=== PATIENT | female | born 1980 | race Asian ===

== ENCOUNTER → 2018-04-10 14:29 | Outpatient (CLI) | payer BC, SELFPAY ==
--- NOTE | 2018-04-10 14:30 | DI.US.S_ITS ---
PROCEDURE: US OB >= 14 WEEKS FETUS INDICATIONS: 20 week anatomic survey OUTSIDE/PRIOR DATING DATA: Last menstrual period (LMP): 11/21/17. LMP-based estimated date of delivery (SHERYL): 08/28/18. First dating scan (date and location): 01/26/18. Estimated date of delivery (SHERYL) from first dating scan: 09/01/18. TECHNIQUE: Real-time scanning was performed of the fetus, with image documentation and biometric measurements. COMPARISON: [facility], , OB >= 14 WEEKS FETUS, 04/01/2018, 16:11. FINDINGS: General: A single living intrauterine gestation is present. Presentation: Vertex Placenta: Placental position is posterior, without previa. Amniotic fluid index: 14.7 cm, normal range is 5-24 cm. heart rate: 144 beats per minute. Maternal cervical canal: 5.2 cm long. Normal lower limit is 2.5 cm. biometrics: Biparietal diameter: 4.7 cm, 20 weeks 1 day Head circumference: 17.2 cm, 19 weeks 5 days Abdominal circumference: 14.8 cm, 20 weeks Femur length: 2.9 cm, 18 weeks 6 days Estimated gestational age from initial scan: 19 weeks 3 days Composite gestational age from present scan: 19 weeks 5 days Estimated weight and percentile: 301 g corresponding to the 55th percentile Measurement variability for biometric dating: +/- 7 days from 14 weeks to 15 weeks 6 days gestation, +/- 10 days from 16 weeks to 21 weeks 6 days gestation, +/- 2 weeks from 22 weeks to 27 weeks 6 days gestation, +/- 3 weeks for 28 weeks gestation or later. weight reference: 4500 g or EFW >90/95% is considered macrosomia or large for gestational age. EFW <10% is small for gestational age. EFW 5% or less is considered intra-uterine growth restriction. Anatomic survey: Neuro: Ventricles are non-dilated at less than 10 mm. Cisterna magna is normal at 3-11 mm. Cerebellum is normal in size and morphology. Nuchal skin fold: Normal at less than 6 mm between 14-21 weeks gestational age. Face: Nose and lips, facial profile are normal. Spine: No evidence for spina bifida. Heart: 4-chambered heart is present, with normal ventricular outflow tracts. Diaphragm: Diaphragm is intact. Stomach: Left-sided stomach is present. Kidneys: No hydronephrosis. Normal is less than 5 mm in 2nd trimester, less than 7 mm in 3rd trimester. Cord: 3-vessel cord has orthotopic insertion. Bladder: Normal in size. Extremities: All 4 extremities identified. IMPRESSION: 1. Single living intrauterine demonstrating appropriate interval growth with estimated weight at the 55th percentile. 2. No abnormalities identified on anatomic survey. Dictated by: Sudhir Wen M.D. on 04/10/2018 at 17:27 Approved by: Sudhir Wen M.D. on 04/10/2018 at 17:30
== END ==
PROVIDERS: Visit Provider Obstetrics & Gynecology
DX: Z34.92 Encounter for supervision of normal pregnancy, unspecified, second trimester (principal); Z3A.20 20 weeks gestation of pregnancy
CPT/HCPCS: 76811

== ENCOUNTER → 2018-05-27 13:00 | Outpatient (CLI) | payer BC, SELFPAY ==
[2018-05-27 14:52] LABS: Add Manual Diff / Slide Review NO; Basophils Percent Auto 0.5 % (0-2); Eosinophils Percent Auto 2.6 % (2-4); Hematocrit 35.5 % (36-46); Hemoglobin 11.9 g/dL (12.0-16.0); Mean Corpuscular HGB Conc 33.5 % (30-36); Mean Corpuscular Volume 101.6 fL (80-100); Monocytes Percent Auto 6.7 % (3-14); Neutrophils Absolute Auto 6200 /uL (3000-5900); Neutrophils Percent Auto 72.2 % (50-75); Platelet Count 227 X10^3/uL (150-400); Red Blood Cell Count 3.49 X10^6/uL (4.0-5.2); Red Cell Distribution Width 14.7 % (11.6-14.8); White Blood Cell Count 8.5 X10^3/uL (4.5-11.0)
[2018-05-27 15:24] LABS: GTT (PREG) 1 Hour PP 50gm Dose 128 mg/dL (76-139)
[2018-05-27 16:59] LABS: Appearance Urine UA CLEAR; Bilirubin Urine UA NEGATIVE (NEGATIVE); Color Urine UA YELLOW; Glucose Urine UA NEGATIVE (Normal); Ketones Urine UA NEGATIVE (NEGATIVE); Leukocyte Esterase Urine UA NEGATIVE (NEGATIVE); Nitrite Urine UA Negative (Negative); Occult Blood Urine UA NEGATIVE (Negative); Protein Urine UA NEGATIVE (Negative); Specific Gravity Urine UA 1.015 (1.000-1.035); Urobilinogen Urine UA 0.2 E.U./dL (0.2)
[2018-05-27 19:02] LABS: Hepatitis B Surface Antigen NEGATIVE s/c (NEGATIVE); Rubella Antibody IgG 20.4 IU/mL (>15)
[2018-05-27 19:21] LABS: HIV 1 and 2 Antibody NEGATIVE (NEGATIVE); Hep C Virus Ab w/Reflex Quant NEGATIVE s/c (NEGATIVE)
[2018-05-29 13:34] LABS: HSV 2 IGG AB < 0.90 index (< 0.90); HSV1IGG < 0.90 index (< 0.90)
[2018-06-02 15:28] LABS: Rapid Plasma Reagin NON-REACTIVE
== END ==
PROVIDERS: Visit Provider Obstetrics & Gynecology
DX: Z34.82 Encounter for supervision of other normal pregnancy, second trimester (principal)
CPT/HCPCS: 36415; 80055; 81003; 82950; 86695; 86696; 86703; 86787; 86803; 86850; 86900; 86901; 87086

== ENCOUNTER → 2018-08-05 16:40 | Outpatient (CLI) | payer BC, SELFPAY ==
[2018-08-06 11:17] LABS: Strep Grp B PCR NEG for Grp B Strep
== END ==
PROVIDERS: PCP Physician Assistant Medical; Visit Provider Obstetrics & Gynecology
DX: Z34.83 Encounter for supervision of other normal pregnancy, third trimester (principal)
CPT/HCPCS: 87653

== ENCOUNTER 2018-08-05 17:35 | Outpatient (CLI) | payer BC, SELFPAY ==
--- NOTE | 2018-08-13 21:47 | P.TNLD_ITS ---
Visit Information Visit Information Date of evaluation: 08/05/18 Primary OB Provider: Neyda Lal Reason for Evaluation: Yes non-stress test non-stress test reason: other ( History of demise) Evaluation Evaluation Baseline heart rate: 135 Variability: Moderate (11-25) monitor accelerations: Present monitor decelerations: Absent Category of Tracing: I Diagnosis, Plan/Disposition Final Diagnosis (1) 36 weeks gestation of : Current Visit: No Status: Acute (2) History of stillbirth in patient in third trimester, antepartum: Current Visit: No Status: Acute Plan/Disposition Plan: Assessment: 36 weeks gestation Prior section History of still Category 1 nonstress test Plan: kick counts Follow-up in 1 week
== END 2018-08-05 18:25 | disposition home or self-care (01) ==
LOC: LABOR 18:20 → OB 08-06 16:28
PROVIDERS: PCP Physician Assistant Medical; Visit Provider Obstetrics & Gynecology
DX: Z34.03 Encounter for supervision of normal first pregnancy, third trimester (principal); Z3A.36 36 weeks gestation of pregnancy
CPT/HCPCS: 59025; 87653; G0378; G0379

== ENCOUNTER 2018-08-12 10:20 | Outpatient (CLI) | payer BC, SELFPAY | END 2018-08-12 11:30 | disposition home or self-care (01) | LOC: LABOR 11:33 → OB 08-14 15:41 | PROVIDERS: PCP Physician Assistant Medical; Visit Provider Obstetrics & Gynecology | DX: Z34.03 Encounter for supervision of normal first pregnancy, third trimester (principal); Z3A.37 37 weeks gestation of pregnancy | CPT/HCPCS: 59025; G0378; G0379 ==

== ENCOUNTER 2018-08-19 12:43 | Inpatient (IN) | payer BC, SELFPAY ==
--- NOTE | 2018-08-19 | PATH_ITS ---
[facility] Accession Number: [id number] . 01 Material submitted: . PLACENTA . 02 Diagnosis: Gutierres Placenta (339 grams), Delivery: membranes with no evidence of chorioamnionitis. Three vessel umbilical cord with no evidence of funisitis. Placental disc with villous maturity appropriate for gestational age. Scattered nucleted red blood cells present, suggestive of hypoxia. MRV/08/25/2018 . 02 Electronically signed: . Ryan Fofana MD, PhD, Pathologist NPI- [id number] . 01 Gross description: . Received in formalin, labeled placenta, is an intact placenta, which includes the placental disc (339 grams, 18.5 x 16.3 x 2.5 cm), membranes, and umbilical cord (length-51.5 cm, diameter-0.9 x 0.7 cm). The membranes are smooth shiny and semi-translucent. The umbilical cord is attached 2.0 cm from the edge of the placenta and contains three vessels. The surface is smooth and shiny with no evidence of meconium identified. The maternal surface is dark maroon with normal cotyledon formation. The placental body is spongy with no nodules, masses or lesions identified. Section code: (A1) edge of placenta with membranes; (A2) umbilical cord, medical collections representative serial sections; (A3-A4, A5, A6) placenta, three full thickness sections. ([id number]) /[facility] . 02 Pathologist provided ICD-10: O36.4XX1 . 02 CPT . 189012 Specimen Comment: A duplicate report has been generated due to demographic updates. Performed at: [address] [facility] [address], [place], [place] [id number] MD Sudhir Shannon MD Phone: [phone] Performed at: 02 [facility] [id number] [place] [id number] MD Eloy Rasheed MD Phone: [phone]
--- NOTE | 2018-08-19 | DI.US.S_ITS ---
PROCEDURE: US OB LIMITED INDICATIONS: NO HEART TONES; HISTORY LATE TERM DEMISE FINDINGS: Single sonographic image demonstrates lack of heart tones. IMPRESSION: Sonographic findings consistent with intrauterine demise. Per the [employer], Dr. Lal was present during the exam. Dictated by: Kateryna Bartlett M.D. on 08/19/2018 at 16:34 Approved by: Kateryna Bartlett M.D. on 08/19/2018 at 16:36
[2018-08-19 13:50] LABS: Add Manual Diff / Slide Review NO; Basophils Percent Auto 1.1 % (0-2); Eosinophils Percent Auto 2.1 % (2-4); Hematocrit 42.5 % (36-46); Hemoglobin 14.5 g/dL (12.0-16.0); Lymphocytes Percent Auto 21.3 % (25-40); Mean Corpuscular HGB Conc 34.1 % (30-36); Mean Corpuscular Hemoglobin 34.7 PG (26-34); Mean Corpuscular Volume 101.8 fL (80-100); Monocytes Percent Auto 7.1 % (3-14); Neutrophils Absolute Auto 5300 /uL (3000-5900); Neutrophils Percent Auto 68.4 % (50-75); Platelet Count 209 X10^3/uL (150-400); Red Blood Cell Count 4.18 X10^6/uL (4.0-5.2); Red Cell Distribution Width 15.8 % (11.6-14.8); White Blood Cell Count 7.7 X10^3/uL (4.5-11.0)
[2018-08-19] MEDS: CEFAZOLIN 2 GM/100 ML FROZ.PIGGY IV (13:58)
--- NOTE | 2018-08-19 14:12 | SUR.OPER ---
Supine on padded OR bed, head on pillow, arms secured on padded arm boards at <90 degrees abduction, legs uncrossed, safety belt at thigh, tape over blanket over lower legs.
[2018-08-19] MEDS: ACETAMINOPHEN IV 1,000 MG/100 ML VIAL 400 MG IV (14:17)
[2018-08-19] MEDS: SODIUM CHLORIDE 0.9% 9 ML, TRIAMCINOLONE 10 MG INJ (14:29)
[2018-08-19 15:05] VITALS: BP 126/70; PULSE 101; RESP 18; TEMP 36.1; O2SAT 96
[2018-08-19 15:08] VITALS: BP 119/63; PULSE 99; RESP 17; O2SAT 100
[2018-08-19 15:12] VITALS: BP 112/53; PULSE 94; RESP 12; O2SAT 112
[2018-08-19 15:17] VITALS: BP 118/68; PULSE 102; RESP 20; O2SAT 118
[2018-08-19 15:24] VITALS: BP 123/69; PULSE 99; RESP 13; O2SAT 98
[2018-08-19] MEDS: LACTATED RINGERS 1,000 ML 100 ML IV (15:45)
[2018-08-19] MEDS: OXYCODONE/ACETAMINOPHEN 5/325 TABLET 2 TAB PO ×2 (18:15→23:44)
[2018-08-19] MEDS: KETOROLAC 30 MG/ML VIAL IV (19:17)
[2018-08-20] MEDS: KETOROLAC 30 MG/ML VIAL IV ×2 (01:05→07:58)
[2018-08-20] MEDS: LACTATED RINGERS 1,000 ML 100 ML IV (01:05)
[2018-08-20 05:21] LABS: Add Manual Diff / Slide Review NO; Basophils Percent Auto 0.3 % (0-2); Eosinophils Percent Auto 0.5 % (2-4); Hematocrit 33.5 % (36-46); Hemoglobin 11.4 g/dL (12.0-16.0); Lymphocytes Percent Auto 13.1 % (25-40); Mean Corpuscular Hemoglobin 34.4 PG (26-34); Mean Corpuscular Volume 101.1 fL (80-100); Monocytes Percent Auto 6.2 % (3-14); Neutrophils Absolute Auto 9100 /uL (3000-5900); Neutrophils Percent Auto 79.9 % (50-75); Platelet Count 174 X10^3/uL (150-400); Red Blood Cell Count 3.32 X10^6/uL (4.0-5.2); Red Cell Distribution Width 15.4 % (11.6-14.8); White Blood Cell Count 11.3 X10^3/uL (4.5-11.0)
[2018-08-20] MEDS: DOCUSATE 250 MG CAPSULE PO (11:41)
[2018-08-20] MEDS: OXYCODONE/ACETAMINOPHEN 5/325 TABLET 2 TAB PO ×3 (11:41→20:12)
[2018-08-20] MEDS: IBUPROFEN 600 MG TABLET PO ×2 (16:10→22:05)
--- NOTE | 2018-08-21 01:28 | PM.GYNOP.1 ---
Operative Date/Time/Diagnoses Date of procedure: 08/19/18 Time of procedure: 14:45 Pre-op diagnosis: 38 weeks gestation Intrauterine demise Double nuchal cord Meconium-stained amniotic fluid Previous section Post-op diagnosis: same Procedure: Procedures Operation Date: 08/19/18 13:15 Actual Procedures Side Surgeon p Section-Repeat Neyda Lal MD Indications: 38 weeks gestation Intrauterine demise Meconium stained amniotic fluid Double nuchal cord Previous section Surgeon: Neyda Lal Anesthesia Type: Spinal (With Duramorph) Operative Notes Closure Type: primary Specimen(s): other (Placenta) Applied: catheter Estimated blood loss (mL): 500 Blood products transfused: none Procedure in detail: After informed consent was obtained, the patient was taken to the operating room where she was placed in the seated position. Spinal anesthesia with Duramorph was administered. The patient was placed in the dorsal supine position and prepped and draped in the usual sterile fashion. A time-out was performed. After spinal anesthesia was found to be adequate, a Pfannenstiel skin incision was made 2 finger breaths above the pubic symphysis and carried through to the underlying layer of fascia. The fascia was nicked in the midline and the incision extended bilaterally with Figueroa scissors. Superior aspect of the fascial incision was grasped with the Shun clamps, elevated, and underlying rectus muscles were dissected off sharply and bluntly. Attention was then turned to the inferior aspect of this incision, which in a similar fashion was grasped with a Shun is, elevated, and underlying rectus muscles were dissected off sharply and bluntly. The rectus muscles were in the midline. The peritoneum was identified, grasped between 2 hemostats, and entered sharply with the Metzenbaum scissors. This incision was extended superiorly and inferiorly with good visualization of the bladder. The bladder blade was inserted. The vesicouterine peritoneum was identified, grasped with a pickup, and entered sharply with the Metzenbaum scissors. This incision was extended bilaterally, and the bladder flap was created digitally. The bladder blade was reinserted. The lower uterine segment was found to be very thin. Upon entering the amniotic sac, there was thick meconium-stained amniotic fluid. The uterine incision was extended bluntly. The infant's head was delivered atraumatically. The remainder of the body delivered without difficulty. The cord was double clamped and cut. The was placed on a warmer. The placenta was removed manually. Pitocin was given in the IV fluids prior to placental removal. The uterus was cleared of all clots and debris. The uterine incision was repaired with # 1 Chromic in a running interlocking fashion. A 2nd layer the same suture was used for an imbricating layer. Hemostasis was achieved. The tubes and ovaries were examined and were found to be normal. The gutters were cleared of all clots and debris. The bladder flap was reapproximated using 2 0 Vicryl in a running fashion. The parietal peritoneum was closed using 2 0 Vicryl in a running fashion after was grasped with hemostats. The fascia was reapproximated using 0 Vicryl in a running fashion. The subcutaneous layer was copiously irrigated with warm normal saline. No bleeding was noted. 5 simple interrupted sutures with 3 0 Vicryl were placed into the subcutaneous layer to reapproximate. The skin was closed with 4 0 undyed Vicryl in a subcuticular fashion. 10 cc of a solution of 10 mg of Kenalog in 10 cc of saline were injected with approximately 1 mg of Kenalog per cm of tissue in the subcutaneous layer under the skin. Steri-Strips were applied. Aquacel dressing was applied. The uterus was expressed of a small amount of old blood. Sponge, lap, and instrument counts were correct x2. The patient tolerated the procedure well, and was taken to PACU in stable condition. Complications: none Post-operative Condition: stable Disposition: PACU Plan for aftercare: To Center after recovery
--- NOTE | 2018-08-21 01:47 | PM.OBPN.1 ---
Subjective - OB Interval history: Patient is a 38-year-old 2 para 2 000 postop day # 1 status post repeat low-transverse section at 38 weeks with an intrauterine demise Patient comments: incisional pain, tolerating diet and flatus present [place] baby status: stillbirth Date Patient Seen: 08/20/18 Time Patient Seen: 13:35 Exam Vital Signs (past 8 hours): Oxygen Delivery Method Room Air Narrative Exam Narrative: Generally: Patient is sitting up in bed, no acute distress Lungs: Clear to auscultation bilaterally Cardiovascular: Regular rate and rhythm Abdomen: Soft, good bowel sounds Fundus: Firm at U -2 Incision: Clean dry and intact with Aquacel dressing Extremities: Negative Homans, trace edema Objective Labs Result Diagrams: 08/20/18 05:11 Labs: Laboratory Results - last 24 hr 08/20/18 05:11 WBC 11.3 H RBC 3.32 L Hgb 11.4 L Hct 33.5 L MCV 101.1 H MCH 34.4 H MCHC 34.0 RDW 15.4 H Plt Count 174 Neut % (Auto) 79.9 H Lymph % (Auto) 13.1 L [place] % (Auto) 6.2 Eos % (Auto) 0.5 L Baso % (Auto) 0.3 Neut # (Auto) 9100 H Assessment & Plan Plan day: 1 plan OB: routine postop care Time Spent With Patient Total time spent is greater than 50% in coordination of care (as documented) at patient's floor/unit and/or counseling patient: 25 - 35 minutes
--- NOTE | 2018-08-21 01:50 | PM.OBHP.1 ---
OB HPI Date/Time Date of admission: 08/19/18 Date Patient Seen: 08/19/18 Time Patient Seen: 13:00 History of Present Condition Chief complaint: URGENT DELIVERY : 2 Para: 0 Estimated Date of Delivery: 08/28/18 Estimated Gestational Age (weeks): 38+5 Narrative: Brittany White is a 38 year old female 2 para 0 at 38-,5/7 weeks who presented to the lobby of the office complaining of contractions. She was sent immediately to labor and delivery. They were unable to obtain heart tones by external monitoring. A bedside ultrasound was performed which showed no heart motion. This was confirmed by official ultrasound by diagnostic imaging at [facility]. Indications Operative indications ( section): IUFD History of Present care: good care, initiated at week # (11), number of visits (9) and pounds weight gain (20) Dating criteria: LMP confirmed by 1st trimester US Ultrasounds: normal 1st trimester US and normal mid trimester US Obstetrical complications: none Medical complications: none Preadmission Labs Blood type: B (+) positive -: Antibody screen: negative, HBsAG: negative, HIV: negative, HSV 1: negative, HSV 2: negative and RPR/VDLR: negative -: Rubella: immune HCT: 35.9 HCAB: negative Quad screen: Normal 1 hr GTT: 128 Prior (ies) History: 11/14/16 Male, 5#, C/S, Intrapartum Evaluation Evaluation Baseline heart rate: 0 Contraction Frequency (minutes): 5 Uterine Contraction Intensity: Strong/Firm Cervical dilation (cm): 3 Laboratory results: Laboratory Tests 08/19/18 08/19/18 08/20/18 13:35 13:35 05:11 WBC 7.7 11.3 H RBC 4.18 3.32 L Hgb 14.5 11.4 L Hct 42.5 33.5 L MCV 101.8 H 101.1 H MCH 34.7 H 34.4 H MCHC 34.1 34.0 RDW 15.8 H 15.4 H Plt Count 209 174 Neut % (Auto) 68.4 79.9 H Lymph % (Auto) 21.3 L 13.1 L [place] % (Auto) 7.1 6.2 Eos % (Auto) 2.1 0.5 L Baso % (Auto) 1.1 0.3 Neut # (Auto) 5300 9100 H Blood Type B Positive Antibody Screen Negative Meds Home Medications Medication Instructions Recorded Confirmed Type vit-iron fum-folic ac 1 cap PO QDAY #0 01/26/18 08/20/18 History [Mynatal] Allergies Allergy/AdvReac Type Severity Reaction Status Date / Time No Known Allergies Allergy Uncoded 02/26/18 12:51 Exam Vital Signs (past 8 hours): Oxygen Delivery Method Room Air Narrative Exam Narrative: Generally: A well-developed, well-nourished female, in severe distress secondary to loss Lungs: Clear to auscultation bilaterally Cardiovascular: Regular rate and rhythm Abdomen: Soft Fundal height: 38 cm Extremities: Trace edema, negative Homans Objective Labs Result Diagrams: 08/20/18 05:11 Labs: Laboratory Results - last 24 hr 08/20/18 05:11 WBC 11.3 H RBC 3.32 L Hgb 11.4 L Hct 33.5 L MCV 101.1 H MCH 34.4 H MCHC 34.0 RDW 15.4 H Plt Count 174 Neut % (Auto) 79.9 H Lymph % (Auto) 13.1 L Roberts % (Auto) 6.2 Eos % (Auto) 0.5 L Baso % (Auto) 0.3 Neut # (Auto) 9100 H Assessment and Plan (1) 38 weeks gestation of : Current visit: Yes Status: Acute (2) demise: Current visit: Yes Status: Acute (3) History of stillbirth: Current visit: Yes Status: Acute Plan: Plan: Assessment: 38-year-old 2 para 2000 at 38 and 5 7th weeks gestation with an intrauterine demise Prior history of intrapartum Prior section Plan: Repeat low-transverse section The risks, benefits, and alternatives to the procedure were explained to the patient. The risks including bleeding, infection, injury to the bowel, bladder, or ureters. She understands these risks and agrees to proceed. A full capital P AR-Q was held and consent form was signed.
--- NOTE | 2018-08-21 02:13 | PM.PREOP ---
Pre-operative Note Interval Note Pre-op Check: Yes History & Physical exam performed today by Physician Changes: No
[2018-08-21 06:01] VITALS: BP 124/80
[2018-08-21] MEDS: IBUPROFEN 600 MG TABLET PO (08:04)
[2018-08-21] MEDS: OXYCODONE/ACETAMINOPHEN 5/325 TABLET 2 TAB PO (08:04)
[2018-08-21] MEDS: DOCUSATE 250 MG CAPSULE PO (08:04)
[2018-08-21 10:37] VITALS: BP 124/80; PULSE 99; RESP 13; TEMP 36.1
== END 2018-08-21 11:08 | disposition home or self-care (01) | DRG 788 ==
PROVIDERS: Admitting Provider Obstetrics & Gynecology; PCP Physician Assistant Medical; Visit Provider Obstetrics & Gynecology
PROC: 10D00Z1 Extraction of Products of Conception, Low, Open Approach (ICD-10-PCS; CPT 59514; principal; 2018-08-19 13:15)
DX: O36.4XX0 Maternal care for intrauterine death, not applicable or unspecified (principal); Z3A.38 38 weeks gestation of pregnancy; Z37.1 Single stillbirth
CPT/HCPCS: 36415; 59050; 59510; 76815; 85025; 86850; 86900; 86901; G0378; G0379; J0131; J0690; J1885; J2250; J2274; J2590; J2765; J3010; J3301